=== PATIENT | male | born 1970 | race Caucasian/White ===

== ENCOUNTER → 2017-08-02 | Outpatient (CLI) | payer OTHER ==
[~2017-08-02] MED LIST: MIRALAX17 GM PO; NEURONTIN300 MG PO; PERCOCET 5-3251 EACH PO; ZOFRAN ODT4 MG PO
== END | disposition home or self-care (01) ==
LOC: LAB 12:04
DX: R10.9 Unspecified abdominal pain (principal); K43.9 Ventral hernia without obstruction or gangrene

== ENCOUNTER 2017-08-11 07:00 | Day surgery (SDC) | payer OTHER ==
[2017-08-11] MEDS ORDERED: PERCOCET 5-3251 EACH PO (08:54)
[2017-08-11] MEDS ORDERED: MIRALAX17 GM PO (08:54)
[2017-08-11] MEDS ORDERED: NEURONTIN300 MG PO (08:54)
[2017-08-11] MEDS ORDERED: ZOFRAN ODT4 MG PO (08:54)
== END 2017-08-11 13:00 | disposition home or self-care (01) ==
LOC: CIR.AMB 07:00
DX: K42.0 Umbilical hernia with obstruction, without gangrene (principal)

== ENCOUNTER 2018-04-09 14:34 | Emergency (ER) | payer OTHER ==
[~2018-04-09] VITALS: Ht 172.7 cm; Wt 83.9 kg
== END 2018-04-09 16:18 | disposition home or self-care (01) ==
LOC: ER 14:34
DX: R07.89 Other chest pain (principal); M60.88 Other myositis, other site

== ENCOUNTER 2018-07-21 10:32 | Outpatient (CLI) | payer OTHER | END 2018-07-21 10:41 | disposition home or self-care (01) | LOC: SONOGRAMA 10:32 | DX: R10.11 Right upper quadrant pain (principal) ==